=== PATIENT | female | born 1965 | race Caucasian/White ===

== ENCOUNTER → 2021-05-13 | Outpatient (CLI) | payer OTHER ==
[~2021-05-13] MED LIST: ABILIFY2 MG PO; ASPIRIN 325MG325 MG PO; CYCLOBENZAPRINE10 MG PO; GABAPENTIN400 MG PO; IBU-DROPS50 MG/1.25 PO; IBUPROFEN800 MG PO; KEFLEX CAP 500500 MG PO; LAMOTRIGINE25 MG PO; PERCOCET 5/325 T1 EA PO; PROTONIX40 MG PO; REMERON15 MG PO; SIMVASTATIN10 MG PO; SYNTHROID125 MCG PO; VALIUM 5 MG TAB5 MG PO; VITAMIN C 500500 MG PO; ZOLOFT100 MG PO
== END ==
LOC: EMI 13:00
DX: M54.16 Radiculopathy, lumbar region (principal)
CPT/HCPCS: 72148

== ENCOUNTER → 2021-05-22 | Outpatient (CLI) | payer OTHER | LOC: HEART CORB 08:55 | DX: R07.2 Precordial pain (principal); R06.02 Shortness of breath; R00.2 Palpitations; R03.0 Elevated blood-pressure reading, without diagnosis of hypertension; M25.473 Effusion, unspecified ankle; E78.5 Hyperlipidemia, unspecified | CPT/HCPCS: 78452; A9502; J2785 ==

== ENCOUNTER → 2021-06-25 | Outpatient (CLI) | payer OTHER | LOC: HEART 5 10:02 | DX: J44.9 Chronic obstructive pulmonary disease, unspecified (principal) | CPT/HCPCS: 94060; 94729 ==

== ENCOUNTER → 2022-01-12 | Outpatient (CLI) | payer OTHER | LOC: KOH-I 13:27 | DX: M79.672 Pain in left foot (principal); M79.671 Pain in right foot; M25.572 Pain in left ankle and joints of left foot; M25.571 Pain in right ankle and joints of right foot; M19.071 Primary osteoarthritis, right ankle and foot; S93.149A Subluxation of metatarsophalangeal joint of unspecified toe(s), initial encounter | CPT/HCPCS: 73610; 73630 ==

== ENCOUNTER → 2022-02-17 | Outpatient (CLI) | payer OTHER | LOC: KOH-I 11:30 | DX: F17.210 Nicotine dependence, cigarettes, uncomplicated (principal) | CPT/HCPCS: 71271 ==